=== PATIENT | female | born 1965 | race Two or more races ===

== ENCOUNTER → 2024-07-16 | Outpatient (CLI) | payer MEDICAID, SELFPAY | END | disposition home or self-care (01) | PROVIDERS: Referring Provider Psychiatry & Neurology Neurology; Visit Provider Psychiatry & Neurology Neurology | DX: R42 Dizziness and giddiness (principal) | CPT/HCPCS: 95816 ==

== ENCOUNTER 2025-02-17 07:35 | Day surgery (SDC) | payer MEDICAID, SELFPAY ==
[2025-02-13 14:40] VITALS: BMI 27.6
[2025-02-17] VITALS (14 sets, daily range): BP systolic 108–143; BP diastolic 62–91; PULSE 67–87; RESP 10–16; TEMP 36.8–37; O2SAT 95–100; BMI 26.8
--- NOTE | 2025-02-17 07:55 | CHAP ---
Visited briefly with patient giving comfort and prayer for the upcoming procedure.
[2025-02-17] MEDS: RINGERS LACTATED 1000 ML 1,000 ML 60 ML IV ×2 (08:21→09:09)
--- NOTE | 2025-02-17 10:17 | SUR.PHASEII ---
0957: Pt received in [facility] via [facility]. Report from [facility]. Pt groggy. Easily aroused with eye opening. Is coherent. Resp even, unlabored. VS stable. Denies pain. 1018: Pt more awake, alert. Resp even, unlabored. VS stable. Denies pain. Sitting up tolerating po fluids with no difficulty swallowing and no n/v.
--- NOTE | 2025-02-17 10:36 | SUR.PHASEII ---
1036: Pt fully awake, oriented x3. VS stable. Denies pain. Pt dressed and assisted to restroom. Ambulation steady.
--- NOTE | 2025-02-17 10:49 | SUR.PHASEII ---
1043: Pt and stated understanding of discharge instructions. Written instructions provided in Moroccan as both stated they read Moroccan better than [place]ian. Pt discharged from [facility] in stable condition.
== END 2025-02-17 10:43 | disposition home or self-care (01) ==
PROVIDERS: PCP Family Medicine; Referring Provider Specialist; Visit Provider Specialist
PROC: 0DJD8ZZ Inspection of Lower Intestinal Tract, Via Natural or Artificial Opening Endoscopic (ICD-10-PCS; CPT 45378; principal; 2025-02-17 08:30)
DX: Z12.11 Encounter for screening for malignant neoplasm of colon (principal); K64.2 Third degree hemorrhoids
CPT/HCPCS: 45378; A4649; J1200; J2250; J3010; J7120